=== PATIENT | male | born 1955 | race Caucasian/White ===

== ENCOUNTER 2016-12-26 12:36 | Day surgery (SDC) | payer BC ==
[~2016-12-26] VITALS: Ht 185.4 cm; Wt 92.5 kg
[~2016-12-26 12:36] MED LIST: FLOMAX0.4 MG PO; NO HOME MEDICATIONS; PERCOCET 325 MG1 TA2 PO
[2016-12-26 12:53] VITALS: BP 145/99; PULSE 54; TEMP 98.1
[2016-12-26 14:25] VITALS: BP 112/81; PULSE 62; TEMP 98
[2016-12-26 14:40] VITALS: BP 97/79; PULSE 60
[2016-12-26 14:55] VITALS: BP 100/79; PULSE 59
[2016-12-26 15:00] VITALS: BP 101/78; PULSE 53
== END 2016-12-26 15:10 | disposition home or self-care (01) ==
LOC: SDCO 12:36
DX: Z12.31 Encounter for screening mammogram for malignant neoplasm of breast (principal); K64.8 Other hemorrhoids; I10 Essential (primary) hypertension; M47.896 Other spondylosis, lumbar region
CPT/HCPCS: OP; J2250; J3010; J7030